=== PATIENT | male | born 1985 | race Caucasian/White ===

== ENCOUNTER → 2016-11-08 | Outpatient (CLI) | payer OTHER ==
[2016-11-08 10:12] LABS: BUN/CREATININE RATIO 21 (0-10)
[2016-11-08 11:12] LABS: HEMOGLOBIN 15.7 gm/dl (14.0-17.5); RED BLOOD COUNT 5.26 M/UL (4.20-5.50); WHITE BLOOD COUNT 9.2 K/UL (4.5-11.0)
== END ==
LOC: LAB 08:20
PROVIDERS: Nurse Practitioner Family
DX: M25.562 Pain in left knee (principal); I10 Essential (primary) hypertension; F41.9 Anxiety disorder, unspecified; G47.33 Obstructive sleep apnea (adult) (pediatric); R73.01 Impaired fasting glucose; E34.50 Androgen insensitivity syndrome, unspecified; R53.83 Other fatigue; M25.9 Joint disorder, unspecified; Z98.890 Other specified postprocedural states
CPT/HCPCS: 36415; 73562; 80053; 80061; 82671; 83001; 83002; 83036; 84144; 84402; 84403; 84436; 84439; 84443; 84550; 85025

== ENCOUNTER 2021-05-09 10:16 | Emergency (ER) | payer OTHER ==
[~2021-05-09] VITALS: Ht 182.9 cm; Wt 149.7 kg
[~2021-05-09 10:16] MED LIST: ALBUTEROL0.63 MG/3 INH; EXPECTORANT200 MG PO; NEB MACHINE; OMNICEF 300 MG300 MG PO; TESSALON PERLE100 MG PO; ZITHROMAX250 MG PO
[2021-05-09 10:49] LABS: HEMOGLOBIN 13.7 gm/dl (14.0-17.5); RED BLOOD COUNT 4.36 M/UL (4.20-5.50); WHITE BLOOD COUNT 2.7 K/UL (4.5-11.0)
[2021-05-09 11:18] LABS: BUN/CREATININE RATIO 19 (0-10)
[2021-05-09] MEDS ORDERED: DECADRON6 MG PO (13:07)
== END 2021-05-09 15:33 | disposition home or self-care (01) ==
LOC: ER1 10:16
PROVIDERS: Physician Assistant
DX: Z23 Encounter for immunization (principal); U07.1 COVID-19; R05 Cough; I10 Essential (primary) hypertension; M10.9 Gout, unspecified
CPT/HCPCS: 36600; 71045; 80053; 82803; 85025; 99283; M0243